=== PATIENT | male | born 1955 | race Caucasian/White ===

== ENCOUNTER 2016-07-10 11:17 | Emergency (ER) | payer MEDICARE ==
[2016-07-10] MEDS ORDERED: HYDROcodone/APAP 5-325MG 1 EACH TAB PO STA (11:43)
[2016-07-10] MEDS ORDERED: CEPHALEXIN 500 MG CAP PO STA (11:43)
--- NOTE | 2016-07-10 11:44 | ED ---
General Adult HPI - General Chief complaint: Extremity Injury, Upper Stated complaint: finger laceration Time Seen by Provider: 07/10/16 11:27 Source: patient, RN notes reviewed, old records reviewed Mode of arrival: ambulatory Limitations: no limitations - History of Present Illness Initial comments: This is a 60-year-old male the ER for evaluation. Patient presents today for evaluation of finger injury. Patient has left index finger crush injury. Patient states his tetanus is up-to-date. Patient was doing some work and describes when he had his finger cut between 2 large pieces of equipment. He does have some range of motion but it does hurt, mild bleeding, laceration medially and laterally. Patient denies any other injury - Related Data Home Medications Medication Instructions Recorded Confirmed Albuterol Inhaler [Ventolin Hfa 1 - 2 puff INHALATION RT-Q6H PRN 07/10/16 Inhaler] Aspirin EC [Ecotrin Low Dose] 81 mg PO DAILY 07/10/16 07/10/16 Atorvastatin [Lipitor] 20 mg PO HS 07/10/16 07/10/16 Cetirizine HCl [Zyrtec] 10 mg PO DAILY 07/10/16 07/10/16 Citalopram Hydrobromide [CeleXA] 40 mg PO HS 07/10/16 07/10/16 Clotrimazole/Betamethasone Dip 1 applic TOPICAL BID 07/10/16 07/10/16 [Lotrisone Cream] Gabapentin [Neurontin] 400 mg PO TID 07/10/16 07/10/16 Hyoscyamine Sulfate [Levsin] 0.125 mg PO QID PRN 07/10/16 07/10/16 Ibuprofen [Motrin] 800 mg PO TID 07/10/16 07/10/16 Insulin Glargine,Hum.rec.anlog 65 unit SQ HS 07/10/16 07/10/16 [Lantus Solostar] Metoprolol Succinate (ER) [Toprol 25 mg PO DAILY 07/10/16 07/10/16 Xl] Mometasone/Formoterol [Dulera 200 1 puff INHALATION RT-BID 07/10/16 07/10/16 Mcg/5 Mcg Inhaler] Montelukast [Singulair] 10 mg PO HS 07/10/16 07/10/16 Multivitamins, Thera [Multivitamin 1 tab PO DAILY 07/10/16 07/10/16 (formulary)] Niacin (Inositol Niacinate) 400 mg PO DAILY 07/10/16 07/10/16 [Niacin Flush Free 500 mg Cap] Omeprazole 20 mg PO BID 07/10/16 07/10/16 hydrOXYzine HCL [Atarax] 50 mg PO HS PRN 07/10/16 07/10/16 metFORMIN HCL [Metformin HCl] 1,000 mg PO BID 07/10/16 07/10/16 traMADol HCL [Ultram] 50 mg PO Q6HR PRN 07/10/16 07/10/16 Allergies Allergy/AdvReac Type Severity Reaction Status Date / Time No Known Allergies Allergy Verified 07/10/16 11:26 Review of Systems ROS Statement: Those systems with pertinent positive or pertinent negative responses have been documented in the HPI. ROS Other: All systems not noted in ROS Statement are negative. Past Medical History Past Medical History: Asthma, Coronary Artery Disease (CAD), Cancer, Diabetes Mellitus, Hyperlipidemia, Hypertension, Osteoarthritis (OA) Additional Past Medical History / Comment(s): brain cancer, neuropathy History of Any Multi-Drug Resistant Organisms: None Reported Past Surgical History: Coronary Bypass/CABG, Hernia Repair, Tonsillectomy Additional Past Surgical History / Comment(s): brain tumor removal Past Psychological History: Anxiety, Depression Smoking Status: Former smoker Past Alcohol Use History: Rare Past Drug Use History: Marijuana General Exam Limitations: no limitations General appearance: alert, in no apparent distress Head exam: Present: atraumatic, normocephalic, normal inspection Eye exam: Present: normal appearance, PERRL, EOMI. Absent: scleral icterus, conjunctival injection, periorbital swelling ENT exam: Present: normal exam, mucous membranes moist Neck exam: Present: normal inspection. Absent: tenderness, meningismus, lymphadenopathy Respiratory exam: Present: normal lung sounds bilaterally. Absent: respiratory distress, wheezes, rales, rhonchi, stridor Cardiovascular Exam: Present: regular rate, normal rhythm, normal heart sounds. Absent: systolic murmur, diastolic murmur, rubs, gallop, clicks GI/Abdominal exam: Present: soft, normal bowel sounds. Absent: distended, tenderness, guarding, rebound, rigid Extremities exam: Present: normal inspection, full ROM, normal capillary refill , other (Left index finger does have crush injury, swollen and edematous, 2 lacerations, 2 cm total). Absent: tenderness, pedal edema, joint swelling, calf tenderness Back exam: Present: normal inspection Neurological exam: Present: alert, oriented X3, CN II-XII intact Psychiatric exam: Present: normal affect, normal mood Skin exam: Present: warm, dry, intact, normal color. Absent: rash Course Vital Signs 07/10/16 11:21 Temperature 98 F Pulse Rate 77 Respiratory 20 Rate Blood Pressure 136/85 O2 Sat by Pulse 100 Oximetry - Reevaluation(s) Reevaluation #1: 07/10/16 11:50 Patient's pain is improving control at this time, tetanus is again up-to-date Procedures - Laceration Laceration #1 Consent Obtained: verbal consent Time Out Performed: Yes Site: hand Size (cm): 5 Description: linear, irregular Depth: simple, single layer Anesthetic Used: lidocaine 1% Anesthesia Technique: nerve block Pre-repair: wound explored Type of Sutures: nylon Size of Sutures: 5-0 Technique: simple, interrupted Patient Tolerated Procedure: well - Nerve Block Consent Obtained: verbal consent Time Out Performed: Yes Local Anesthetic Used: Lidocaine 1% Side: left Nerve Blocks: digital Procedure Successful: Yes Complications: none Patient Tolerated Procedure: well - Orthopedic Splinting/Casting Injury #1 Side: left Upper Extremity Injury Location: finger Upper Extremity Immobilizer: aluminum form splint, finger (other) Medical Decision Making - Medical Decision Making 60 male to the ER with crush injury left finger and laceration. Both lacerations are repaired, patient does have shena fracture, placed in splint we' ll discharge him on pain control and antibiotics - Lab Data Lab Results 07/10/16 Range/Units 12:04 POC Glucose (mg/dL) 270 H (75-99) mg/dL POC Glu Boiling Tub Operator ID Venus Mnoson Disposition Clinical Impression: Open fracture of tuft of distal phalanx of finger, Finger laceration Disposition: HOME SELF-CARE Condition: Good Instructions: Finger Fracture (ED), Laceration (ED) Referrals: Hima Kinsey DO [Primary Care Provider] - 1-2 days
[2016-07-10 12:20] LABS: Glucose,Whole Blood 270 mg/dL (75-99)
--- NOTE | 2016-07-10 12:25 | XR ---
EXAMINATION TYPE: XR hand complete LT DATE OF EXAM ORDERED: 07/10/2016 HISTORY: Pain. COMPARISON: None. FINDINGS: There is a comminuted tuft fracture of the ring finger of the left hand. There are degener ative changes with joint space loss in the PIP and DIP joints of the second through fifth digits. The re is degenerative change at the base of the thumb and mild degenerative change within the triscaphe joint. IMPRESSION: 1. COMPOUND COMMINUTED FRACTURE OF THE TUFT OF THE DISTAL PHALANX OF THE LEFT RING FINGER. 2. DEGENERATIVE CHANGE. CODE B: INITIAL ENCOUNTER FOR OPEN FRACTURE TYPE I OR II
[2016-07-10 13:35] VITALS: BP 122/61; PULSE 70; RESP 18; TEMP 98.1
== END 2016-07-10 13:35 | disposition home or self-care (01) ==
LOC: EC 11:17
DX: S62.635B Displaced fracture of distal phalanx of left ring finger, initial encounter for open fracture (principal); S67.191A Crushing injury of left index finger, initial encounter; S61.211A Laceration without foreign body of left index finger without damage to nail, initial encounter; E78.5 Hyperlipidemia, unspecified; I10 Essential (primary) hypertension; E11.9 Type 2 diabetes mellitus without complications; J45.909 Unspecified asthma, uncomplicated; M19.90 Unspecified osteoarthritis, unspecified site; G62.9 Polyneuropathy, unspecified; F32.9 Major depressive disorder, single episode, unspecified; Z87.891 Personal history of nicotine dependence; Z79.1 Long term (current) use of non-steroidal anti-inflammatories (NSAID); Z79.4 Long term (current) use of insulin; Z79.51 Long term (current) use of inhaled steroids; Z79.82 Long term (current) use of aspirin; Z79.84 Long term (current) use of oral hypoglycemic drugs; Z79.899 Other long term (current) drug therapy; W31.83XA Contact with special construction vehicle in stationary use, initial encounter; Y93.89 Activity, other specified
CPT/HCPCS: 12002; 36415; 99284

== ENCOUNTER → 2018-04-05 | Outpatient (CLI) | payer MEDICARE ==
[2018-04-05 17:41] LABS: T4, Free (Free Thyroxine) 1.3 ng/dL (0.80-1.80)
== END ==
LOC: LABWHC1 07:42
PROVIDERS: ATTEND Internal Medicine Endocrinology, Diabetes & Metabolism
DX: E11.65 Type 2 diabetes mellitus with hyperglycemia (principal)
CPT/HCPCS: 36415; 84439; 84443

== ENCOUNTER 2018-12-10 22:11 | Emergency (ER) | payer MEDICARE ==
[2018-12-10 22:15] VITALS: TEMP 98.2
[2018-12-10] MEDS ORDERED: ALBUTEROL NEBULIZED 2.5 MG/3 ML INHALATION STA (22:40)
--- NOTE | 2018-12-10 22:41 | ED ---
SOB HPI - General Chief Complaint: Shortness of Breath Stated Complaint: SOB Time Seen by Provider: 12/10/18 22:18 Source: patient Mode of arrival: ambulatory Limitations: no limitations - History of Present Illness Initial Comments: This patient is a 63-year-old man who presents to be evaluated for shortness of breath. The patient states that for about a week he has had a little bit of congestion and cough. He feels like most of the congestion is in the upper airway and throat. The cough is been mild and nonproductive. He states that he had tried to go to bed tonight. And he states that just after he had fallen asleep he woke feeling like he could not take a breath. He woke and sat up and then was able to breathe. He noticed that his heart was racing. He was not having chest pain. Patient states that he is feeling like everything has resolved other than a tiny bit of congestion still. He does have a history of some mild COPD. No fever or chills. MD Complaint: shortness of breath Onset/Timin -: hour(s) Consistency: now resolved Known History Of: COPD Context: recent URI Associated Symptoms: denies other symptoms Treatments Prior to Arrival: none - Related Data Home Oxygen Therapy: No Home Medications Medication Instructions Recorded Confirmed Albuterol Inhaler [Ventolin Hfa 1 - 2 puff INHALATION RT-Q6H PRN 07/10/16 12/10/18 Inhaler] Aspirin EC [Ecotrin Low Dose] 81 mg PO DAILY 07/10/16 12/10/18 Atorvastatin [Lipitor] 20 mg PO HS 07/10/16 12/10/18 Cetirizine HCl [Zyrtec] 10 mg PO DAILY 07/10/16 12/10/18 Citalopram Hydrobromide [CeleXA] 40 mg PO HS 07/10/16 12/10/18 Hyoscyamine Sulfate [Levsin] 0.125 mg PO QID PRN 07/10/16 12/10/18 Ibuprofen [Motrin] 800 mg PO TID PRN 07/10/16 12/10/18 Insulin Glargine,Hum.rec.anlog 74 unit SQ 07/10/16 12/10/18 [Lantus Solostar] Mometasone/Formoterol [Dulera 200 2 puff INHALATION RT-BID 07/10/16 12/10/18 Mcg/5 Mcg Inhaler] Montelukast [Singulair] 10 mg PO HS 07/10/16 12/10/18 Multivitamins, Thera [Multivitamin 1 tab PO DAILY 07/10/16 12/10/18 (formulary)] Omeprazole 40 mg PO HS 07/10/16 12/10/18 hydrOXYzine HCL [Atarax] 50 mg PO HS PRN 07/10/16 12/10/18 metFORMIN HCL [Metformin HCl] 1,000 mg PO BID 07/10/16 12/10/18 traMADol HCL [Ultram] 50 mg PO Q6HR PRN 07/10/16 12/10/18 Focus Factor 1 tab PO BID 12/10/18 12/10/18 Insulin Aspart [NovoLOG Flexpen] See Protocol SQ AC-TID 12/10/18 12/10/18 Lisinopril 20 mg PO BID 12/10/18 12/10/18 Metoprolol Succinate (ER) [Toprol 25 mg PO DAILY 12/10/18 12/10/18 Xl] Allergies Allergy/AdvReac Type Severity Reaction Status Date / Time No Known Allergies Allergy Verified 12/10/18 22:50 Review of Systems ROS Statement: Those systems with pertinent positive or pertinent negative responses have been documented in the HPI. ROS Other: All systems not noted in ROS Statement are negative. Constitutional: Denies: fever, chills Respiratory: Reports: as per HPI, cough, dyspnea. Denies: wheezes, hemoptysis Cardiovascular: Reports: palpitations. Denies: chest pain, edema, syncope Gastrointestinal: Denies: abdominal pain, vomiting, diarrhea Genitourinary: Denies: dysuria, hematuria Musculoskeletal: Denies: back pain Skin: Denies: rash Neurological: Denies: headache, weakness Past Medical History Past Medical History: Asthma, Coronary Artery Disease (CAD), Cancer, Diabetes Mellitus, Hyperlipidemia, Hypertension, Osteoarthritis (OA) Additional Past Medical History / Comment(s): brain cancer, neuropathy History of Any Multi-Drug Resistant Organisms: None Reported Past Surgical History: Coronary Bypass/CABG, Hernia Repair, Tonsillectomy Additional Past Surgical History / Comment(s): brain tumor removal Past Psychological History: Anxiety, Depression Smoking Status: Former smoker Past Alcohol Use History: Rare Past Drug Use History: Marijuana General Exam Limitations: no limitations General appearance: alert, in no apparent distress Head exam: Present: atraumatic, normocephalic Eye exam: Present: normal appearance. Absent: scleral icterus, conjunctival injection ENT exam: Present: normal oropharynx, mucous membranes moist Neck exam: Present: normal inspection Respiratory exam: Present: normal lung sounds bilaterally. Absent: respiratory distress, wheezes, rales, rhonchi, stridor, accessory muscle use, decreased breath sounds, prolonged expiratory Cardiovascular Exam: Present: regular rate, normal rhythm, normal heart sounds. Absent: systolic murmur, diastolic murmur, rubs, gallop GI/Abdominal exam: Present: soft. Absent: distended, tenderness, guarding, rebound, rigid, mass Extremities exam: Present: normal inspection, normal capillary refill. Absent: pedal edema, calf tenderness Back exam: Present: normal inspection. Absent: CVA tenderness (R), CVA tendern ess (L) Neurological exam: Present: alert Skin exam: Present: warm, dry, intact, normal color. Absent: rash Course Vital Signs 12/10/18 12/10/18 12/10/18 22:13 22:48 23:50 Temperature 98.2 F Pulse Rate 68 60 Respiratory 20 19 Rate Blood Pressure 166/88 O2 Sat by Pulse 99 Oximetry 12/10/18 12/11/18 23:59 00:34 Temperature Pulse Rate 62 58 L Respiratory 18 Rate Blood Pressure 123/78 O2 Sat by Pulse 96 Oximetry Medical Decision Making - Lab Data Result diagrams: 12/10/18 22:35 12/10/18 22:35 Lab Results 12/10/18 12/10/18 12/10/18 Range/Units 22:35 22:35 22:35 WBC 9.2 (3.8-10.6) k/uL RBC 4.52 (4.30-5.90) m/uL Hgb 14.7 (13.0-17.5) gm/dL Hct 42.8 (39.0-53.0) % MCV 94.7 (80.0-100.0) fL MCH 32.4 (25.0-35.0) pg MCHC 34.2 (31.0-37.0) g/dL RDW 11.8 (11.5-15.5) % Plt Count 287 (150-450) k/uL Neutrophils % 68 % Lymphocytes % 21 % Monocytes % 6 % Eosinophils % 2 % Basophils % 1 % Neutrophils # 6.3 (1.3-7.7) k/uL Lymphocytes # 1.9 (1.0-4.8) k/uL Monocytes # 0.5 (0-1.0) k/uL Eosinophils # 0.2 (0-0.7) k/uL Basophils # 0.0 (0-0.2) k/uL PT 9.4 (9.0-12.0) sec INR 0.9 (<1.2) APTT 25.7 (22.0-30.0) sec D-Dimer 0.53 (<0.60) mg/L FEU Sodium 133 L (137-145) mmol/L Potassium 4.7 (3.5-5.1) mmol/L Chloride 99 (98-107) mmol/L Carbon Dioxide 23 (22-30) mmol/L Anion Gap 11 mmol/L BUN 26 H (9-20) mg/dL Creatinine 1.00 (0.66-1.25) mg/dL Est GFR (CKD-EPI)AfAm >90 (>60 ml/min/1.73 sqM) Est GFR (CKD-EPI)NonAf 81 (>60 ml/min/1.73 sqM) Glucose 590 H* (74-99) mg/dL Calcium 9.8 (8.4-10.2) mg/dL Total Bilirubin 0.3 (0.2-1.3) mg/dL AST 19 (17-59) U/L ALT 32 (21-72) U/L Alkaline Phosphatase 113 (38-126) U/L Troponin I (0.000-0.034) ng/mL NT-Pro-B Natriuret Pep pg/mL Total Protein 6.6 (6.3-8.2) g/dL Albumin 4.3 (3.5-5.0) g/dL 12/10/18 12/10/18 Range/Units 22:35 22:35 WBC (3.8-10.6) k/uL RBC (4.30-5.90) m/uL Hgb (13.0-17.5) gm/dL Hct (39.0-53.0) % MCV (80.0-100.0) fL MCH (25.0-35.0) pg MCHC (31.0-37.0) g/dL RDW (11.5-15.5) % Plt Count (150-450) k/uL Neutrophils % % Lymphocytes % % Monocytes % % Eosinophils % % Basophils % % Neutrophils # (1.3-7.7) k/uL Lymphocytes # (1.0-4.8) k/uL Monocytes # (0-1.0) k/uL Eosinophils # (0-0.7) k/uL Basophils # (0-0.2) k/uL PT (9.0-12.0) sec INR (<1.2) APTT (22.0-30.0) sec D-Dimer (<0.60) mg/L FEU Sodium (137-145) mmol/L Potassium (3.5-5.1) mmol/L Chloride (98-107) mmol/L Carbon Dioxide (22-30) mmol/L Anion Gap mmol/L BUN (9-20) mg/dL Creatinine (0.66-1.25) mg/dL Est GFR (CKD-EPI)AfAm (>60 ml/min/1.73 sqM) Est GFR (CKD-EPI)NonAf (>60 ml/min/1.73 sqM) Glucose (74-99) mg/dL Calcium (8.4-10.2) mg/dL Total Bilirubin (0.2-1.3) mg/dL AST (17-59) U/L ALT (21-72) U/L Alkaline Phosphatase (38-126) U/L Troponin I <0.012 (0.000-0.034) ng/mL NT-Pro-B Natriuret Pep 44 pg/mL Total Protein (6.3-8.2) g/dL Albumin (3.5-5.0) g/dL - EKG Data EKG shows normal: sinus rhythm (With sinus arrhythmia), axis (Normal), intervals (Normal), QRS complexes (Normal), ST-T waves (Normal) Rate: normal (Rate 65 bpm) Interpretation: normal EKG Disposition Clinical Impression: Bronchospasm, Hyperglycemia Disposition: HOME SELF-CARE Condition: Good Instructions (If sedation given, give patient instructions): Acute Bronchitis (ED), Diabetic Hyperglycemia (ED) Is patient prescribed a controlled substance at d/c from ED?: No Referrals: Nonstaff,Physician [Primary Care Provider] - 1-2 days
[2018-12-10 22:57] LABS: Basophils % (A) 1 %; Eosinophils # (A) 0.2 k/uL (0-0.7); Eosinophils % (A) 2 %; HCT 42.8 % (39.0-53.0); HGB 14.7 gm/dL (13.0-17.5); Lymphocytes # (A) 1.9 k/uL (1.0-4.8); Lymphocytes % (A) 21 %; MCH 32.4 pg (25.0-35.0); MCHC 34.2 g/dL (31.0-37.0); MCV 94.7 fL (80.0-100.0); Mean Platelet Volume 6.7; Monocytes # (A) 0.5 k/uL (0-1.0); Monocytes % (A) 6 %; Neutrophils # (A) 6.3 k/uL (1.3-7.7); Neutrophils % (A) 68 %; Platelet Count 287 k/uL (150-450); RBC 4.52 m/uL (4.30-5.90); RDW 11.8 % (11.5-15.5); WBC 9.2 k/uL (3.8-10.6)
--- NOTE | 2018-12-10 22:58 | XR ---
EXAMINATION TYPE: XR chest 2V DATE OF EXAM: 12/10/2018 COMPARISON: NONE HISTORY: Cough TECHNIQUE: Frontal and lateral views of the chest are obtained. FINDINGS: Heart and mediastinum are normal. Lungs are clear of infiltrate. There are sternal wires. Diaphragm is normal. Bony thorax is intact. There is minimal pleural thickening at the lung apices. IMPRESSION: No active cardiopulmonary disease. Normal heart.
[2018-12-10 23:06] LABS: ALT 32 U/L (21-72); AST 19 U/L (17-59); African American GFR (CKD) >90 (>60 ml/min/1.73 sqM); Albumin 4.3 g/dL (3.5-5.0); Alkaline Phosphatase 113 U/L (38-126); Anion Gap 11 mmol/L; Blood Urea Nitrogen 26 mg/dL (9-20); Calcium 9.8 mg/dL (8.4-10.2); Carbon Dioxide 23 mmol/L (22-30); Chloride 99 mmol/L (98-107); Potassium 4.7 mmol/L (3.5-5.1); Sodium 133 mmol/L (137-145); Total Bilirubin 0.3 mg/dL (0.2-1.3); Total Protein 6.6 g/dL (6.3-8.2)
[2018-12-10 23:13] LABS: D-Dimer 0.53 mg/L FEU (<0.60); INR 0.9 (<1.2); Partial Thromboplastin Time 25.7 sec (22.0-30.0); Prothrombin Time 9.4 sec (9.0-12.0)
[2018-12-10 23:46] LABS: Glucose 590 mg/dL (74-99)
[2018-12-11] MEDS ORDERED: SODIUM CHLORIDE 0.9% 2,000 ML IV ONE (00:16)
[2018-12-11] MEDS ORDERED: INSULIN REGULAR 100 UNIT/ML VIAL IV STA (00:16)
[2018-12-11 00:35] VITALS: BP 123/78; PULSE 58; RESP 18
[2018-12-11 01:42] LABS: Glucose,Whole Blood 200 mg/dL (75-99)
== END 2018-12-11 01:43 | disposition home or self-care (01) ==
LOC: EC 22:11
DX: J98.01 Acute bronchospasm (principal); E11.65 Type 2 diabetes mellitus with hyperglycemia; J44.9 Chronic obstructive pulmonary disease, unspecified; I25.10 Atherosclerotic heart disease of native coronary artery without angina pectoris; E78.5 Hyperlipidemia, unspecified; I10 Essential (primary) hypertension; E11.40 Type 2 diabetes mellitus with diabetic neuropathy, unspecified; M19.90 Unspecified osteoarthritis, unspecified site; F32.9 Major depressive disorder, single episode, unspecified; F41.9 Anxiety disorder, unspecified; Z87.891 Personal history of nicotine dependence; Z79.4 Long term (current) use of insulin; Z79.51 Long term (current) use of inhaled steroids; Z79.82 Long term (current) use of aspirin; Z79.899 Other long term (current) drug therapy; Z85.841 Personal history of malignant neoplasm of brain; Z95.1 Presence of aortocoronary bypass graft; Z90.89 Acquired absence of other organs; Z98.890 Other specified postprocedural states
CPT/HCPCS: 36415; 71046; 80053; 83880; 84484; 85025; 85379; 85610; 85730; 93005; 94640; 96360; 99285

== ENCOUNTER → 2018-12-22 | Outpatient (CLI) | payer MEDICARE ==
[2018-12-22 08:27] LABS: Basophils % (A) 1 %; Eosinophils # (A) 0.3 k/uL (0-0.7); Eosinophils % (A) 4 %; HCT 45.8 % (39.0-53.0); HGB 15.6 gm/dL (13.0-17.5); Lymphocytes # (A) 1.8 k/uL (1.0-4.8); Lymphocytes % (A) 27 %; MCH 32.2 pg (25.0-35.0); MCHC 34.1 g/dL (31.0-37.0); MCV 94.3 fL (80.0-100.0); Monocytes # (A) 0.4 k/uL (0-1.0); Monocytes % (A) 6 %; Neutrophils # (A) 4.2 k/uL (1.3-7.7); Neutrophils % (A) 61 %; Platelet Count 287 k/uL (150-450); RBC 4.86 m/uL (4.30-5.90); RDW 11.6 % (11.5-15.5); WBC 6.9 k/uL (3.8-10.6)
[2018-12-22 17:30] LABS: African American GFR (CKD) 75.2 (60.0-200.0); Albumin 4.5 g/dL (3.80-4.90); Albumin/Globulin Ratio 2.37 (1.60-3.17); BUN/Creat Ratio 18.33 Ratio (12.00-20.00); Calcium 9.3 mg/dL (8.7-10.3); Chol/HDL Ratio 5.17; Globulin 1.9 g/dL (1.6-3.3); Total Bilirubin 0.4 mg/dL (0.3-1.2); Total Protein 6.4 g/dL (6.2-8.2)
[2018-12-22 17:38] LABS: T4, Free (Free Thyroxine) 1.2 ng/dL (0.80-1.80)
[2018-12-22 18:14] LABS: Hemoglobin A1C 11.1 % (4.0-6.0)
== END | disposition home or self-care (01) ==
LOC: LABWHC1 08:02
PROVIDERS: ATTEND Internal Medicine Endocrinology, Diabetes & Metabolism
DX: E11.65 Type 2 diabetes mellitus with hyperglycemia (principal); I10 Essential (primary) hypertension; E78.00 Pure hypercholesterolemia, unspecified
CPT/HCPCS: 36415; 80053; 80061; 82043; 82570; 83036; 83721; 84439; 84443; 85025

== ENCOUNTER → 2019-04-19 | Outpatient (CLI) | payer MEDICARE ==
[2019-04-19 07:04] LABS: Basophils % (A) 1 %; Eosinophils # (A) 0.2 k/uL (0-0.7); Eosinophils % (A) 3 %; HCT 47.7 % (39.0-53.0); HGB 15.9 gm/dL (13.0-17.5); Lymphocytes # (A) 2.1 k/uL (1.0-4.8); Lymphocytes % (A) 27 %; MCH 31.4 pg (25.0-35.0); MCHC 33.4 g/dL (31.0-37.0); MCV 94.1 fL (80.0-100.0); Mean Platelet Volume 7.7; Monocytes # (A) 0.5 k/uL (0-1.0); Monocytes % (A) 6 %; Neutrophils # (A) 4.8 k/uL (1.3-7.7); Neutrophils % (A) 62 %; Platelet Count 259 k/uL (150-450); RBC 5.07 m/uL (4.30-5.90); RDW 11.8 % (11.5-15.5); WBC 7.8 k/uL (3.8-10.6)
[2019-04-19 10:55] LABS: African American GFR (CKD) 68.3 (60.0-200.0); Albumin 4.6 g/dL (3.80-4.90); Albumin/Globulin Ratio 2.42 (1.60-3.17); Anion Gap 6.2 mmol/L (4.00-12.00); BUN/Creat Ratio 17.69 Ratio (12.00-20.00); Calcium 9.6 mg/dL (8.7-10.3); Carbon Dioxide 26.8 mmol/L (21.6-31.8); Chol/HDL Ratio 4.19; Globulin 1.9 g/dL (1.6-3.3); Non-African American GFR(CKD) 58.9 (60.0-200.0); Potassium 4.5 mmol/L (3.5-5.5); Total Bilirubin 0.5 mg/dL (0.2-1.2); Total Protein 6.5 g/dL (6.2-8.2); Urine Creatinine 120.9 mg/dL
[2019-04-19 11:01] LABS: T4, Free (Free Thyroxine) 1.6 ng/dL (0.80-1.80)
[2019-04-19 16:11] LABS: Hemoglobin A1C 11.4 % (4.0-6.0)
== END | disposition home or self-care (01) ==
LOC: LABWHC1 06:35
PROVIDERS: ATTEND Internal Medicine Endocrinology, Diabetes & Metabolism
DX: E11.65 Type 2 diabetes mellitus with hyperglycemia (principal); I10 Essential (primary) hypertension; E03.9 Hypothyroidism, unspecified
CPT/HCPCS: 36415; 80053; 80061; 82043; 82570; 83036; 84439; 84443; 85025

== ENCOUNTER → 2019-08-28 | Outpatient (CLI) | payer MEDICARE ==
[2019-08-28 19:06] LABS: T4, Free (Free Thyroxine) 1.3 ng/dL (0.80-1.80)
== END | disposition home or self-care (01) ==
LOC: LABWHC1 14:07
PROVIDERS: ATTEND Internal Medicine Endocrinology, Diabetes & Metabolism
DX: E11.65 Type 2 diabetes mellitus with hyperglycemia (principal); R94.6 Abnormal results of thyroid function studies
CPT/HCPCS: 36415; 84439; 84443; 84481

== ENCOUNTER 2020-12-24 06:04 | Day surgery (SDC) | payer MEDICARE ==
[~2020-12-24 06:04] MED LIST: ALPRAZolam 0.25 MG TAB PO PRN; ALPRAZolam 0.5 MG TAB PO PRN; ASPIRIN 325 MG TAB PO STA; ATORVASTATIN 80 MG TAB PO STA; NITROGLYCERIN SL TABS 0.4 MG TAB SUBLINGUAL PRN
[2020-12-24] MEDS ORDERED: SODIUM CHLORIDE 0.9% 1,000 ML IV ONE (06:40)
[2020-12-24 06:52] LABS: Glucose,Whole Blood 186 mg/dL (75-99)
[2020-12-24 07:08] LABS: Basophils # (A) 0.1 k/uL (0-0.2); Basophils % (A) 1 %; Eosinophils # (A) 0.3 k/uL (0-0.7); Eosinophils % (A) 3 %; HGB 14.3 gm/dL (13.0-17.5); Lymphocytes # (A) 2.8 k/uL (1.0-4.8); Lymphocytes % (A) 33 %; MCH 32.2 pg (25.0-35.0); MCHC 34.1 g/dL (31.0-37.0); MCV 94.6 fL (80.0-100.0); Mean Platelet Volume 7.5; Monocytes # (A) 0.5 k/uL (0-1.0); Monocytes % (A) 6 %; Neutrophils # (A) 4.8 k/uL (1.3-7.7); Neutrophils % (A) 56 %; Platelet Count 333 k/uL (150-450); RBC 4.44 m/uL (4.30-5.90); RDW 12.2 % (11.5-15.5); WBC 8.5 k/uL (3.8-10.6)
[2020-12-24] MEDS ORDERED: LIDOCAINE 1% INJ 10MG/ML (20 ML MDV) ONE (07:16)
[2020-12-24] MEDS ORDERED: VERAPAMIL 2.5 MG/ML 2 ML AMP ONE (07:16)
[2020-12-24 07:31] LABS: Potassium 4.5 mmol/L (3.5-5.1)
[2020-12-24] MEDS ORDERED: fentaNYL (PF) 50 MCG/ML 2 ML AMP ONE (07:32)
[2020-12-24] MEDS ORDERED: fentaNYL (PF) 50 MCG/ML 2 ML AMP IV ONE (07:40)
[2020-12-24] MEDS ORDERED: LIDOCAINE 1% INJ 10MG/ML (20 ML MDV) SQ ONE (07:43)
[2020-12-24] MEDS ORDERED: IOPAMIDOL-370 100ML BTL INJ ONE ×3 (08:00→08:30)
[2020-12-24] MEDS ORDERED: IOPAMIDOL-370 125ML BTL INJ ONE (08:04)
[2020-12-24] MEDS ORDERED: HEPARIN SODIUM 1,000 UN/ML (10ML VL) ONE ×2 (08:09→08:31)
[2020-12-24] MEDS ORDERED: CLOPIDOGREL 75 MG TAB ONE (08:11)
[2020-12-24] MEDS ORDERED: CLOPIDOGREL 75 MG TAB PO ONE (08:12)
[2020-12-24] MEDS ORDERED: niCARdipine 25 MG/10 ML VIAL ONE (08:22)
[2020-12-24] MEDS: niCARdipine Syringe (1,000 mcg/10 mL) INTRACORON ONE ×2 (08:23→08:24)
[2020-12-24] MEDS ORDERED: NITROGLYCERIN 1000MCG/10ML SYRINGE INTRACORON ONE (08:23)
[2020-12-24] MEDS ORDERED: ZOLPIDEM 5 MG TAB PO PRN (08:36)
[2020-12-24] MEDS ORDERED: MAG HYDROX/AL HYDROX/SIMETH 30 ML CUP PO PRN (08:36)
[2020-12-24] MEDS ORDERED: NITROGLYCERIN SL TABS 0.4 MG TAB SUBLINGUAL PRN (08:36)
[2020-12-24] MEDS ORDERED: ATROPINE SULFATE 0.1 MG/ML 10ML SYRINGE IV PRN (08:36)
[2020-12-24] MEDS ORDERED: RX INFO: IV CONTRAST WAS GIVEN 1 EACH MISC MISCELLANE PRN (08:36)
[2020-12-24] MEDS ORDERED: SODIUM CHLORIDE 0.9% 1,000 ML IV SCH (08:45)
--- NOTE | 2020-12-24 11:03 | PTCA ---
PERCUTANEOUSTRANS CORORONARY ANGIOGRAPHY Mr. Burks is a 65-year-old male with known history of coronary artery disease who presented with symptoms of dyspnea and abnormal myocardial perfusion imaging. His cardiac catheterization revealed significant obstructive disease involving the saphenous vein graft to the right coronary artery. In view of that, recommendation was made regarding angioplasty and stenting. The procedure as well as the risks and the complications were discussed with the patient who is in full understanding and agreement. PROCEDURE: A 6-Ukrainian right coronary artery bypass guiding catheter was introduced in the system. After cannulating the saphenous vein graft to the right coronary artery, a 0.014 balanced medium weight J-wire was advanced across the lesion, positioned distally. Then a 3.5 x 18 mm Xience SkyPoint stent was advanced, deployed and was dilated at 16 atmospheres. Following that, the patient had a transient episode of no reflow that resolved with giving intracoronary nitroglycerin and nicardipine. Following that the balloon and the guidewire were withdrawn back in the guiding catheter. Images were obtained repeated. Those images revealed stable successful stenting. At that point, the guiding catheter, the balloon and the guidewire were removed. The sheath was removed. Hemostasis was obtained with deployment of an Angio-Seal. There was no immediate complication. Patient was returned to his room in stable condition. Of note, the patient received 8000 units of intravenous heparin as well as oral loading dose of clopidogrel. He had chest discomfort and EKG changes that resolved at the end procedure. RESULTS: Successful stenting of the proximal segment of the saphenous vein graft to the right coronary artery with reduction of stenosis from 85 to 0 percent. RECOMMENDATIONS: Patient will be continued on aspirin, Plavix, beta glen, DEAN inhibitor and statin. The importance of dual antiplatelet treatment were discussed with the patient and his family, and they are in full understanding and agreement. MMODL / IJN: [id number] /
--- NOTE | 2020-12-24 11:14 | CC ---
CARDIAC CATHETERIZATION REPORT Mr. Burks is a 65-year-old male with known history of coronary artery disease, status post coronary artery bypass grafting, history of hypertension, hyperlipidemia and diabetes mellitus who has been complaining of dyspnea on exertion and had myocardial perfusion imaging that revealed evidence of inducible ischemia involving the inferolateral wall. In view of that, recommendation was made regarding cardiac catheterization. The procedure as well as risks and complications were discussed with the patient, who was in full understanding and agreement. PROCEDURE DESCRIPTION: Patient was brought to the lab animal technician in a fasting, semi-sedated state after receiving fentanyl and Benadryl and achieving a moderate conscious sedated state. Using Xylocaine anesthesia and Seldinger technique, a 6-Ethiopian sheath was introduced in the right femoral artery. Selective right and left coronary angiography was performed using 6-Ethiopian 4 bend right and left Angelina catheters. Multiple views were taken of the arteries, including hemiaxial views. The 6-Ethiopian right Angelina was used to cannulate the RIOJAS to LAD and saphenous vein graft to the diagonal branch. Images of the grafts were obtained. Following that, 6-Ethiopian tight pigtail catheter was introduced into the left ventricle and left ventricular end-diastolic pressure was calculated. Following that, an ENZO view of the ascending aorta was performed. Following that, a 6-Ethiopian right coronary bypass catheter was introduced and images of the saphenous vein graft to the right coronary artery and saphenous vein graft to the obtuse marginal branch were obtained. Following that, catheters were removed. Images were reviewed. FINDINGS: LEFT MAIN: This is a short-sized vessel bifurcating into left circumflex and left anterior descending artery. Left main coronary artery has no evidence of high- grade stenosis. LEFT ANTERIOR DESCENDING ARTERY: This vessel is totally occluded proximally with no significant antegrade flow. Left Circumflex artery: This is a moderately sized vessel giving rise to 4 obtuse marginal branches of small caliber. The fourth one is the largest in caliber. The proximal left circumflex has a 90% stenosis. There is another area of 90% stenosis in the mid segment. The third obtuse marginal branch appears to be the grafted graft and it is a very in caliber. It appears to have an occluded graft. RIGHT CORONARY ARTERY: The right coronary is totally occluded proximally with no antegrade flow. SAPHENOUS VEIN GRAFT TO THE DIAGONAL BRANCH: The proximal and distal anastomotic sites are patent. The flow into the diagonal branch is brisk. There is no evidence of significant obstructive disease. RIOJAS TO LAD: The distal anastomotic site is patent. The LAD is diffusely diseases, small in caliber, but has no evidence of high grade lesion. SAPHENOUS VEIN GRAFT TO THE OBTUSE MARGINAL BRANCH. This graft is totally occluded proximally with no significant antegrade flow. SAPHENOUS VEIN GRAFT TO THE RIGHT CORONARY ARTERY: The proximal and distal anastomotic sites are patent. In the proximal segment of the body of the graft, there is an eccentric 85% to 90% stenosis. The rest of the graft has mild intimal disease without any evidence of high-grade stenosis. LEFT VENTRICULOGRAM: Left ventriculogram was not performed. AORTOGRAM : Aortogram was performed in the ENZO view and revealed a tricuspid aortic valve with normal size of the ascending aorta. HEMODYNAMICS: There was no gradient across the aortic valve. The left ventricular end- diastolic pressure was 16-18 mmHg. CONCLUSION: 1. Severe triple-vessel coronary artery disease. 2. Patent RIOJAS to LAD. 3. Patent saphenous vein graft to the diagonal branch. 4. Patent saphenous vein graft to the right coronary artery with significant disease in the proximal segment of the body of the graft. 5. Occluded saphenous vein graft to the obtuse marginal branch. 6. Normal appearance of the ascending aorta. RECOMMENDATIONS: In view of findings and anatomy, I have recommended proceeding with angioplasty and stenting of the saphenous vein graft to the right coronary artery. The procedure as well as risks and complications were discussed with the patient, who is in full understanding and agreement. MMODL / IJN: [id number] / [id number]
[2020-12-24] MEDS: SODIUM CHLORIDE 0.9% 1,000 ML in EMPTY BAG 1 BAG IV SCH ×2 (11:46→18:01)
[2020-12-24] MEDS: MONTELUKAST 10 MG TAB PO SCH (13:08)
[2020-12-24] MEDS: traMADol 50 MG TAB PO SCH ×2 (13:08→17:59)
[2020-12-24] MEDS: lisinopriL 20 MG TAB PO SCH ×2 (13:09→20:20)
[2020-12-24] MEDS: ASPIRIN 81 MG PO SCH (13:10)
[2020-12-24] MEDS: CHOLECALCIFEROL 125 MCG (5000 IU) TABLET PO SCH (13:13)
[2020-12-24 14:08] VITALS: BMI 29.5
[2020-12-24] MEDS: PANTOPRAZOLE 40 MG TABLET PO SCH (17:59)
[2020-12-24 18:09] LABS: Glucose,Whole Blood 258 mg/dL (75-99)
[2020-12-24 20:21] LABS: Glucose,Whole Blood 100 mg/dL (75-99)
[2020-12-24] MEDS ORDERED: METOPROLOL SUCCINATE (ER) 25 MG TAB.ER.24H PO SCH (21:00)
[2020-12-24] MEDS ORDERED: INSULIN DETEMIR (LEVEMIR) 100 UNIT/ML SYR SQ SCH (21:00)
[2020-12-24] MEDS ORDERED: ATORVASTATIN 40 MG TAB PO SCH (21:00)
[2020-12-24] MEDS ORDERED: CITALOPRAM HYDROBROMIDE 20 MG TAB PO SCH (21:00)
[2020-12-25] MEDS: traMADol 50 MG TAB PO SCH ×2 (01:29→08:35)
[2020-12-25] MEDS: SODIUM CHLORIDE 0.9% 1,000 ML in EMPTY BAG 1 BAG IV SCH (01:31)
[2020-12-25 06:38] LABS: African American GFR (CKD) 69 (>60 ml/min/1.73 sqM); Anion Gap 6 mmol/L; Blood Urea Nitrogen 18 mg/dL (9-20); Calcium 9.5 mg/dL (8.4-10.2); Carbon Dioxide 25 mmol/L (22-30); Chloride 107 mmol/L (98-107); Glucose 72 mg/dL (74-99); Non-African American GFR(CKD) 59 (>60 ml/min/1.73 sqM); Sodium 138 mmol/L (137-145)
[2020-12-25 07:50] VITALS: BP 120/71; PULSE 59; RESP 17; TEMP 98.1
[2020-12-25 08:12] LABS: Glucose,Whole Blood 79 mg/dL (75-99)
[2020-12-25] MEDS: MONTELUKAST 10 MG TAB PO SCH (08:35)
[2020-12-25] MEDS: ASPIRIN 81 MG PO SCH (08:36)
[2020-12-25] MEDS: lisinopriL 20 MG TAB PO SCH (08:36)
[2020-12-25] MEDS: PANTOPRAZOLE 40 MG TABLET PO SCH (08:36)
[2020-12-25] MEDS: CHOLECALCIFEROL 125 MCG (5000 IU) TABLET PO SCH (08:37)
[2020-12-25] MEDS ORDERED: CLOPIDOGREL 75 MG TAB PO SCH (09:00)
--- NOTE | 2020-12-25 10:02 | P.DS ---
Providers Attending physician: Dorinda Laws Consults: 12/24/20 08:36 Consult Physician Routine Consulting Provider: [facility] Consult Reason/Comments: Post Interventional patient Do you want consulting provider notified?: Already Contacted Primary care physician: Hima Kinsey [facility] Course: Patient is a pleasant 65-year-old male with history of coronary artery disease with prior CABG, COPD, diabetes mellitus on insulin, hypertension, hyperlipidemia, glioblastoma multiform who has been having off-and-on chest pain. He had a Lexiscan stress test which showed a inferior inferolateral reversible perfusion defect and therefore heart catheterization was performed 12/24/2020 which showed severe triple vessel disease with patent RIOJAS to LAD, SVG to diagonal branch however significant disease of the SVG to RCA and occluded SVG to OM branch. Therefore he underwent successful PCI of the SVG to RCA from my right femoral approach. He was seen and examined 12/25/2020 without any hematoma and lungs clear to auscultation bilaterally with regular heart rate and rhythm. He denied any chest pain or pressure and appeared stable for discharge home on aspirin and Plavix. Plan - Discharge Summary Discharge Rx Participant: Yes New Discharge Prescriptions: New Clopidogrel [Plavix] 75 mg PO DAILY #90 tablet No Action Cetirizine HCl [Zyrtec] 10 mg PO DAILY Albuterol Inhaler (Mhu) [Ventolin Hfa Inhaler] 1 - 2 puff INHALATION RT-Q6H PRN PRN Reason: Shortness Of Breath Multivitamins, Thera [Multivitamin (formulary)] 1 tab PO DAILY Atorvastatin [Lipitor] 20 mg PO HS Aspirin EC [Ecotrin Low Dose] 81 mg PO DAILY traMADol HCL [Ultram] 50 mg PO TID Montelukast [Singulair] 10 mg PO DAILY Citalopram Hydrobromide [CeleXA] 40 mg PO HS Insulin Glargine,Hum.rec.anlog [Lantus Solostar] 64 unit SQ HS Ibuprofen [Motrin] 800 mg PO TID metFORMIN HCL [Metformin HCl] 1,000 mg PO BID Omeprazole 20 mg PO BID Metoprolol Succinate (ER) [Toprol Xl] 25 mg PO HS lisinopriL 20 mg PO BID Insulin Aspart [NovoLOG Flexpen] See Protocol SQ AC-TID PRN PRN Reason: Blood Sugar - High Focus Factor 1 tab PO BID Cholecalciferol [Vitamin D3 (125 Mcg = 5000 Iu)] 125 mcg PO DAILY Discharge Medication List Albuterol Inhaler (Mhu) [Ventolin Hfa Inhaler] 1 - 2 puff INHALATION RT-Q6H PRN 07/10/16 [History] Aspirin EC [Ecotrin Low Dose] 81 mg PO DAILY 07/10/16 [History] Atorvastatin [Lipitor] 20 mg PO HS 07/10/16 [History] Cetirizine HCl [Zyrtec] 10 mg PO DAILY 07/10/16 [History] Citalopram Hydrobromide [CeleXA] 40 mg PO HS 07/10/16 [History] Ibuprofen [Motrin] 800 mg PO TID 07/10/16 [History] Insulin Glargine,Hum.rec.anlog [Lantus Solostar] 64 unit SQ HS 07/10/16 [History] Montelukast [Singulair] 10 mg PO DAILY 07/10/16 [History] Multivitamins, Thera [Multivitamin (formulary)] 1 tab PO DAILY 07/10/16 [History] Omeprazole 20 mg PO BID 07/10/16 [History] metFORMIN HCL [Metformin HCl] 1,000 mg PO BID 07/10/16 [History] traMADol HCL [Ultram] 50 mg PO TID 07/10/16 [History] Insulin Aspart [NovoLOG Flexpen] See Protocol SQ AC-TID PRN 12/10/18 [History] Metoprolol Succinate (ER) [Toprol Xl] 25 mg PO HS 12/10/18 [History] lisinopriL 20 mg PO BID 12/10/18 [History] Cholecalciferol [Vitamin D3 (125 Mcg = 5000 Iu)] 125 mcg PO DAILY 12/22/20 [Hist ory] Focus Factor 1 tab PO BID 12/22/20 [History] Clopidogrel [Plavix] 75 mg PO DAILY #90 tablet 12/25/20 [Rx] Follow up Appointment(s)/Referral(s): Dorinda Laws MD [STAFF PHYSICIAN] - 1 Week (Office will call with appointment date and time) Patient Instructions/Handouts: *[facility] - After Heart Catheterization - [facility] Instructions, Left Heart Catheterization (DC), Procedural Sedation (ED), Angio-Seal (DC) Activity/Diet/Wound Care/Special Instructions: Resume Metformin in 48 hours
== END 2020-12-25 09:57 | disposition home or self-care (01) ==
LOC: CATHCVL 06:04 → 6NMEDSUR 08:30 → CATHCVL 12-25 09:57
PROVIDERS: ATTEND Internal Medicine Interventional Cardiology
DX: I25.10 Atherosclerotic heart disease of native coronary artery without angina pectoris (principal); Z20.822 Contact with and (suspected) exposure to COVID-19
CPT/HCPCS: 93459; 93567; 80051; 80048; 85025; 87635; C9604; C1769 ×2; C1760; C1887; C1894; C1874; J2001; J3010; J1644; Q9967 ×2

== ENCOUNTER 2021-05-21 08:55 | Day surgery (SDC) | payer MEDICARE ==
[~2021-05-21 08:55] MED LIST changes: +ASPIRIN 325 MG TAB PO ONE; -ASPIRIN 325 MG TAB PO STA; +ATORVASTATIN 80 MG TAB PO ONE; -ATORVASTATIN 80 MG TAB PO STA; +SODIUM CHLORIDE 0.9% 1,000 ML in EMPTY BAG 1 BAG IV SCH
[2021-05-21] MEDS ORDERED: ASPIRIN 81 MG ONE (09:15)
[2021-05-21 09:26] LABS: Glucose,Whole Blood 67 mg/dL (75-99)
[2021-05-21] MEDS ORDERED: SODIUM CHLORIDE 0.9% 1,000 ML IV ONE (09:29)
[2021-05-21 09:32] VITALS: RESP 16; TEMP 98.3
[2021-05-21 09:38] LABS: Basophils # (A) 0.1 k/uL (0-0.2); Basophils % (A) 1 %; Eosinophils # (A) 0.2 k/uL (0-0.7); Eosinophils % (A) 2 %; HCT 43.7 % (39.0-53.0); HGB 14.6 gm/dL (13.0-17.5); Lymphocytes # (A) 1.8 k/uL (1.0-4.8); Lymphocytes % (A) 20 %; MCH 31.1 pg (25.0-35.0); MCHC 33.3 g/dL (31.0-37.0); MCV 93.2 fL (80.0-100.0); Mean Platelet Volume 7.5; Monocytes # (A) 0.6 k/uL (0-1.0); Monocytes % (A) 7 %; Neutrophils # (A) 6.1 k/uL (1.3-7.7); Neutrophils % (A) 68 %; Platelet Count 324 k/uL (150-450); RBC 4.69 m/uL (4.30-5.90); RDW 13.4 % (11.5-15.5); WBC 8.9 k/uL (3.8-10.6)
[2021-05-21 09:55] LABS: Calcium 9.9 mg/dL (8.4-10.2); Potassium 4.7 mmol/L (3.5-5.1)
[2021-05-21] MEDS ORDERED: LIDOCAINE 1% INJ 10MG/ML (20 ML MDV) ONE (10:12)
[2021-05-21] MEDS ORDERED: VERAPAMIL 2.5 MG/ML 2 ML AMP ONE (10:23)
[2021-05-21] MEDS ORDERED: fentaNYL (PF) 50 MCG/ML 2 ML AMP ONE (10:31)
[2021-05-21] MEDS ORDERED: fentaNYL (PF) 50 MCG/ML 2 ML AMP IVP ONE (10:53)
[2021-05-21] MEDS ORDERED: LIDOCAINE 1% INJ 10MG/ML (20 ML MDV) SQ ONE (10:57)
[2021-05-21] MEDS ORDERED: IOPAMIDOL-370 125ML BTL INJ ONE (11:15)
[2021-05-21] MEDS ORDERED: RX INFO: IV CONTRAST WAS GIVEN 1 EACH MISC MISCELLANE PRN (11:28)
[2021-05-21] MEDS ORDERED: SODIUM CHLORIDE 0.9% 1,000 ML IV SCH (11:30)
--- NOTE | 2021-05-21 11:43 | P.CARDCATH ---
Date of Procedure: 05/21/21 Description of Procedure: Cardiac Catheterization: [the patient is a 65-year-old male with a history of hypertension, hyperlipidemia and diabetes mellitus, post CABG in 2006 and stenting of the saphenous to the RCA in December 2020 who presented with symptoms of chest discomfort and dyspnea.] Recommendations were made regarding cardiac catheterization, the risks and the complications were discussed with the patient who is in full understanding and agreement. Procedure Description: Patient was brought to laboratory aide in fasting semi-sedated state after receiving Fentanyl and Benadryl achieiving moderate conscious sedated state. Using Xylocaine Anesthesia and Seldinger technique, a 6-German sheath was introduced in the right femoral artery . Subsequently, selective coronary angiography performed using a 6-German 4 bend Angelina catheter.the right Angelina was used to cannulate the RIOJAS to the LAD and the saphenous vein graft to the diagonal, a 6-German RCB with used to cannulate the saphenous vein graft to the RCA. Multiple views of the coronary artery and the grafts including hemiaxial views were obtained. The 6-German Pigatail catheter was used to cross the aortic valve and LVEDP was calculated. Following that, catheter and sheath were removed. Hemostasis was obtained with deployment of Angio seal . There was no immediate complication. Patient was returned to room in stable condition. There was no immediate complications. Findings: Left main: this is a moderately sized vessel that has no evidence of high-grade stenosis, bifurcates into the LAD and the left circumflex LAD: this vessel is totally occluded proximally with no significant antegrade flow Left circumflex: this vessel gives rise to obtuse marginal branch, it has diffuse disease throughout its course and the obtuse marginal are small in caliber RCA: this vessel is chronically occluded proximally with no antegrade flow RIOJAS to the LAD: The distal anastomotic site is patent there is no evidence of significant obstructive disease and the flow in the LAD is brisk. SVG to the diagonal branch: The proximal and distal anastomotic site are patent, the diagonal branch has diffuse intimal disease. SVG to the RCA: The proximal and distal anastomotic sites are patent. The stented segment shows no evidence of in-stent restenosis. There is a 40% mid body of the graft eccentric lesion. The PDA is small in caliber, diffusely diseased with a 60-70% stenosis at the distal anastomotic site [Left] Ventriculogram: Was not performed Hemodynamics: there was no gradient across the aortic valve, LVEDP 15-20 mmHg Conclusion: 1. severe triple-vessel disease 2. diffuse intimal disease in the [place] anatomy 3. patent stent in the saphenous vein graft to the RCA 4. patent RIOJAS to the LAD and patent SVG to the diagonal Recommendations: I have recommended to continue present therapy, I see no evidence of significant progression of disease since December 2020. I would maximize his medical therapy in view of diffuse pattern of disease in the [place] anatomy. The findings were discussed with the patient and his family, they are in agreement and understanding Duration of sedation is 23 minutes.
[2021-05-21 14:21] VITALS: BP 113/61; PULSE 60
[2021-05-21] MEDS ORDERED: traMADol 50 MG TAB PO SCH (16:00)
[2021-05-21] MEDS ORDERED: PREGABALIN 75 MG CAP PO SCH (16:00)
[2021-05-21] MEDS ORDERED: NON FORMULARY DRUG (Insulin Glargine,Hum.Rec.Anlog [Lantus Solostar] 100 UNIT/ML Insuln.Pe SQ SCH (21:00)
[2021-05-21] MEDS ORDERED: NON FORMULARY DRUG (Citalopram Hydrobromide [Celexa] 40 MG Tablet) PO SCH (21:00)
[2021-05-21] MEDS ORDERED: lisinopriL 20 MG TAB PO SCH (21:00)
[2021-05-21] MEDS ORDERED: ATORVASTATIN 40 MG TAB PO SCH (21:00)
[2021-05-21] MEDS ORDERED: METOPROLOL SUCCINATE (ER) 25 MG TAB.ER.24H PO SCH (21:00)
[2021-05-22] MEDS ORDERED: HEPARIN SODIUM,PORCINE 2,500 UNIT in SODIUM CHLORIDE 0.9% 250 ML IRRIGATION PRN (07:00)
[2021-05-22] MEDS ORDERED: HEPARIN SODIUM,PORCINE 10,000 UNIT in SODIUM CHLORIDE 0.9% 1,000 ML IRRIGATION PRN (07:00)
[2021-05-22] MEDS ORDERED: GLIMEPIRIDE 4 MG TAB PO SCH (07:30)
[2021-05-22] MEDS ORDERED: MONTELUKAST 10 MG TAB PO SCH (09:00)
[2021-05-22] MEDS ORDERED: PIOGLITAZONE 30 MG TAB PO SCH (09:00)
[2021-05-22] MEDS ORDERED: CLOPIDOGREL 75 MG TAB PO SCH (09:00)
[2021-05-22] MEDS ORDERED: ASPIRIN 81 MG PO SCH (09:00)
== END 2021-05-21 15:02 | disposition home or self-care (01) ==
LOC: CATHCVL 08:55
PROVIDERS: ATTEND Internal Medicine Interventional Cardiology
DX: I25.10 Atherosclerotic heart disease of native coronary artery without angina pectoris (principal); I25.82 Chronic total occlusion of coronary artery; I10 Essential (primary) hypertension; E11.9 Type 2 diabetes mellitus without complications; E78.00 Pure hypercholesterolemia, unspecified; E78.2 Mixed hyperlipidemia; Z95.5 Presence of coronary angioplasty implant and graft; Z95.1 Presence of aortocoronary bypass graft; Z20.822 Contact with and (suspected) exposure to COVID-19; Z87.891 Personal history of nicotine dependence; Z79.899 Other long term (current) drug therapy; Z79.82 Long term (current) use of aspirin; Z79.02 Long term (current) use of antithrombotics/antiplatelets; Z79.4 Long term (current) use of insulin; Z79.84 Long term (current) use of oral hypoglycemic drugs; Z82.49 Family history of ischemic heart disease and other diseases of the circulatory system
CPT/HCPCS: 93459; 80048; 85025; 87635; C1760; C1894; C1769; J2001; J3010; Q9967

== ENCOUNTER 2022-07-04 09:41 | Emergency (ER) | payer MEDICARE ==
[2022-07-04] MEDS ORDERED: diphenhydrAMINE 50 MG CAP PO STA (09:58)
[2022-07-04] MEDS ORDERED: methylPREDNISolone SOD SUCCI 125 MG/2 ML VIAL IV STA (09:58)
[2022-07-04] MEDS ORDERED: FAMOTIDINE 20 MG/2 ML VIAL IV STA (09:58)
[2022-07-04] MEDS ORDERED: SODIUM CHLORIDE 0.9% 1,000 ML IV STA (09:58)
--- NOTE | 2022-07-04 10:07 | ED ---
Skin/Abscess/FB HPI - General Chief complaint: Skin/Abscess/Foreign Body Stated complaint: allergic reaction Time Seen by Provider: 07/04/22 09:48 Source: patient, family, RN notes reviewed Mode of arrival: ambulatory Limitations: no limitations - History of Present Illness Initial comments: This is a 66-year-old male who presents to the emergency department for concerns of an allergic reaction. States that last night he started to develop a rash that started on his bilateral upper extremities. This then spread to the chest, neck, face and hands. He took Zyrtec with no relief in symptoms. Denies coming into contact with any new soaps, detergents, or plants outdoors. He has also not started any new medications. The rash was initially itchy, however he states that it is now very painful and he has been unable to sleep. His hands are the most bothersome at this time. Denies any chest pain or shortness of breath. Denies any fevers, chills, sore throat, cough, dyspnea, chest pain, palpitations, abdominal pain, nausea, vomiting, diarrhea, back pain, or headaches. MD complaint: rash Onset/Timin -: days(s) - Related Data Home Medications Medication Instructions Recorded Confirmed Citalopram Hydrobromide [CeleXA] 40 mg PO HS 07/10/16 03/10/22 Montelukast [Singulair] 10 mg PO DAILY 07/10/16 03/10/22 metFORMIN HCL 1,000 mg PO BID 07/10/16 03/10/22 traMADol HCL [Ultram] 50 mg PO Q8H PRN 07/10/16 03/10/22 Albuterol Sulfate [Ventolin HFA] 2 puff INHALATION RT-QID PRN 02/08/21 03/10/22 Mometasone/Formoterol [Dulera 200 1 puff INHALATION RT-DAILY 03/10/22 03/10/22 Mcg-5 Mcg Inhaler] Omeprazole [PriLOSEC] 40 mg PO DAILY 03/10/22 03/10/22 Previous Rx's Medication Instructions Recorded Aspirin 81 mg PO DAILY tab 03/12/22 Atorvastatin [Lipitor] 40 mg PO HS #30 tab 03/12/22 Clopidogrel [Plavix] 75 mg PO DAILY #30 tab 03/12/22 Insulin Aspart [NovoLOG Flexpen] 8 units SQ AC-TID #0 03/12/22 Insulin Glargine,Hum.rec.anlog 54 unit SQ HS #0 03/12/22 [Lantus Solostar Pen] Metoprolol Succinate (ER) [Toprol 12.5 mg PO DAILY #30 tab 03/12/22 XL] Tamsulosin [Flomax] 0.4 mg PO PC-SUPPER #30 cap 03/12/22 lisinopriL [Zestril] 5 mg PO DAILY #30 tab 03/12/22 Famotidine 20 mg PO DAILY 5 Days #5 tablet 07/04/22 predniSONE 50 mg PO DAILY 5 Days #5 tab 07/04/22 Allergies Allergy/AdvReac Type Severity Reaction Status Date / Time No Known Allergies Allergy Verified 07/04/22 09:45 Review of Systems ROS Statement: Those systems with pertinent positive or pertinent negative responses have been documented in the HPI. ROS Other: All systems not noted in ROS Statement are negative. Past Medical History Past Medical History: Asthma, Coronary Artery Disease (CAD), Cancer, COPD, Diabetes Mellitus, GERD/Reflux, Hyperlipidemia, Hypertension, Osteoarthritis (OA) Additional Past Medical History / Comment(s): hx brain cancer, neuropathy, migraines, History of Any Multi-Drug Resistant Organisms: None Reported Past Surgical History: Coronary Bypass/CABG, Heart Catheterization, Heart Catheterization With Stent, Hernia Repair, Tonsillectomy Additional Past Surgical History / Comment(s): brain tumor removal(titanium plate in skull), quad. bypass 2006(titanium in stermun), priti cataracts Past Anesthesia/Blood Transfusion Reactions: No Reported Reaction Date of Last Stent Placement:: October 2021 Past Psychological History: No Psychological Hx Reported Smoking Status: Former smoker Past Alcohol Use History: None Reported Past Drug Use History: None Reported - Past Family History Mother Family Medical History: Cancer Additional Family Medical History / Comment(s): ovarian General Exam Limitations: no limitations General appearance: alert, in no apparent distress Head exam: Present: atraumatic, normocephalic, normal inspection Respiratory exam: Present: normal lung sounds bilaterally. Absent: respiratory distress, wheezes, rales, rhonchi, stridor Cardiovascular Exam: Present: regular rate, normal rhythm, normal heart sounds. Absent: systolic murmur, diastolic murmur, rubs, gallop, clicks Neurological exam: Present: alert, oriented X3, CN II-XII intact Psychiatric exam: Present: normal affect, normal mood Skin exam: Present: other (Urticarial rash to the bilateral upper extremities, worse on the hands with swelling of all 5 digits. There are also areas of urticaria on the trunk, worse on the abdomen than the back. Facial erythema is also present without any facial swelling.) Course Vital Signs 07/04/22 07/04/22 09:43 11:47 Temperature 97.5 F L 97.8 F Pulse Rate 72 58 L Respiratory 20 18 Rate Blood Pressure 128/52 118/62 O2 Sat by Pulse 97 100 Oximetry Medical Decision Making - Medical Decision Making This is a 66-year-old male who presents to the emergency department for a rash. Was pt. sent in by a medical professional or institution? @ -No Did you speak to anyone other than the patient for history? @ -No Did you review nursing and triage notes? @ -Yes, and I agree, it is accurate with regards to the patient's symptoms. Were old charts reviewed? @ -No Differential Diagnosis? @ -Differential Rash: Roseola, measles, Lyme disease, erythema multiforme, cellulitis, toxic shock syndrome, Saud Neno syndrome, Kawasaki disease, catrachito mountain spotted fever, contact dermatitis, allergic dermatitis, measles, mumps, rubella, varicella, meningococcal disease, drug reaction, coxsackievirus, This is not meant to be an all-inclusive list. EKG interpreted by me (3pts min.)? @ -Not obtained X-rays interpreted by me (1pt min.)? @ -Not obtained CT interpreted by me (1pt min.)? @ -Not obtained U/S interpreted by me (1pt. min.)? @ -Not obtained What testing was considered but not performed? (CT, X-rays, U/S, labs)? Why? @ -None What meds were considered but not given? Why? @ -None Did you discuss the management of the patient with other professionals? @ -No Did you reconcile home meds? @ -No Was smoking cessation discussed for >3mins.? @ -No Was critical care preformed (if so, how long)? @ -No Were there social determinants of health that impacted care today? How? (Homelessness, low income, unemployed, alcoholism, drug addiction, transportation, low edu. Level, literacy, decrease access to med. care, half-way, rehab)? @ -No Was there de-escalation of care discussed even if they declined? (Discuss DNR or withdrawal of care, Hospice)? @ -No What co-morbidities impacted this encounter? (DM, HTN, Smoking, COPD, CAD, Cancer, CVA, Hep., AIDS, mental health diagnosis, sleep apnea, morbid obesity)? @ -Diabetes mellitus Was patient admitted / discharged? @ -Discharged. Patient given an allergy cocktail consisting of Solu-Medrol, Benadryl, and Pepcid along with a liter bolus of IV fluids. He did note significant improvement in symptoms following medication administration. Prescription for an additional 5 days of prednisone and famotidine provided with dosing instructions reviewed. Advised he take an over the counter antihistamine with these as well. Otherwise advised supportive care and following up with his primary care provider for reevaluation of symptoms. Undiagnosed new problem with uncertain prognosis? @ -None Drug Therapy requiring intensive monitoring for toxicity (Heparin, Nitro, Insulin, Cardizem)? @ -None Were any procedures done? @ -None Diagnosis/symptom? @ -Urticaria Acute, or Chronic, or Acute on Chronic? @ -Acute Uncomplicated (without systemic symptoms) or Complicated (systemic symptoms)? @ -Uncomplicated Side effects of treatment? @ -None Exacerbation, Progression, or Severe Exacerbation] @ -Not applicable Poses a threat to life or bodily function? @ -No Return precautions reviewed in depth, the patient is instructed to return to the emergency department with any new, worsening, or concerning symptoms. Patient verbalized understanding. This case was discussed in detail with the attending ED physician, Dr. Roth. Presentation, findings, and treatment plan discussed in detail as well. Disposition Clinical Impression: Urticaria Disposition: HOME SELF-CARE Instructions (If sedation given, give patient instructions): Urticaria (ED) Additional Instructions: Return to the emergency department with any new, worsening, or concerning symptoms. Take the prednisone and Pepcid daily for 5 days, with your first dose starting tomorrow, as you received a dose in the emergency department. Make sure that you are taking an antihistamine as well. Follow up with your primary care provider in 1-2 days. Prescriptions: Famotidine 20 mg PO DAILY 5 Days #5 tablet predniSONE 50 mg PO DAILY 5 Days #5 tab Is patient prescribed a controlled substance at d/c from ED?: No Referrals: Nonstaff,Physician [REFERRING] - 1-2 days
[2022-07-04 11:55] VITALS: BP 118/62; PULSE 58; RESP 18; TEMP 97.8
== END 2022-07-04 11:50 | disposition home or self-care (01) ==
LOC: EC 09:41
DX: L50.9 Urticaria, unspecified (principal); E11.40 Type 2 diabetes mellitus with diabetic neuropathy, unspecified; E11.36 Type 2 diabetes mellitus with diabetic cataract; I10 Essential (primary) hypertension; I25.10 Atherosclerotic heart disease of native coronary artery without angina pectoris; J44.9 Chronic obstructive pulmonary disease, unspecified; K21.9 Gastro-esophageal reflux disease without esophagitis; Z79.84 Long term (current) use of oral hypoglycemic drugs; Z79.899 Other long term (current) drug therapy; Z87.891 Personal history of nicotine dependence
CPT/HCPCS: 99283; 96374; 96375; 96361; J2930

== ENCOUNTER 2022-08-16 20:34 | Emergency (ER) | payer MEDICARE ==
[2022-08-16 20:40] VITALS: RESP 18; TEMP 98.4
--- NOTE | 2022-08-16 21:25 | ED ---
General Adult HPI - General Chief complaint: Recheck/Abnormal Lab/Rx Stated complaint: Overdose Insulin Time Seen by Provider: 08/16/22 20:49 Source: patient, RN notes reviewed Mode of arrival: ambulatory Limitations: no limitations - History of Present Illness Initial comments: 67-year-old male with a past medical history significant for diabetes mellitus 2 resents to the emergency department with a chief complaint of sugar problem. Patient reports that he was getting ready for bed when he accidentally keep himself 40 units of short-acting insulin by mistake. He reports that he quickly came to the emergency department to be evaluated. He denies any vision changes, vision loss, dizziness, lightheaded, palpitations, shortness of breath, abdominal pain, nausea, vomiting - Related Data Home Medications Medication Instructions Recorded Confirmed Citalopram Hydrobromide [CeleXA] 40 mg PO HS 07/10/16 03/10/22 Montelukast [Singulair] 10 mg PO DAILY 07/10/16 03/10/22 metFORMIN HCL 1,000 mg PO BID 07/10/16 03/10/22 traMADol HCL [Ultram] 50 mg PO Q8H PRN 07/10/16 03/10/22 Albuterol Sulfate [Ventolin HFA] 2 puff INHALATION RT-QID PRN 02/08/21 03/10/22 Mometasone/Formoterol [Dulera 200 1 puff INHALATION RT-DAILY 03/10/22 03/10/22 Mcg-5 Mcg Inhaler] Omeprazole [PriLOSEC] 40 mg PO DAILY 03/10/22 03/10/22 Previous Rx's Medication Instructions Recorded Aspirin 81 mg PO DAILY tab 03/12/22 Atorvastatin [Lipitor] 40 mg PO HS #30 tab 03/12/22 Clopidogrel [Plavix] 75 mg PO DAILY #30 tab 03/12/22 Insulin Aspart [NovoLOG Flexpen] 8 units SQ AC-TID #0 03/12/22 Insulin Glargine,Hum.rec.anlog 54 unit SQ HS #0 03/12/22 [Lantus Solostar Pen] Metoprolol Succinate (ER) [Toprol 12.5 mg PO DAILY #30 tab 03/12/22 XL] Tamsulosin [Flomax] 0.4 mg PO PC-SUPPER #30 cap 03/12/22 lisinopriL [Zestril] 5 mg PO DAILY #30 tab 03/12/22 Famotidine 20 mg PO DAILY 5 Days #5 tablet 07/04/22 predniSONE 50 mg PO DAILY 5 Days #5 tab 07/04/22 Allergies Allergy/AdvReac Type Severity Reaction Status Date / Time No Known Allergies Allergy Verified 08/16/22 20:39 Review of Systems ROS Statement: Those systems with pertinent positive or pertinent negative responses have been documented in the HPI. ROS Other: All systems not noted in ROS Statement are negative. Past Medical History Past Medical History: Asthma, Coronary Artery Disease (CAD), Cancer, COPD, Diabetes Mellitus, GERD/Reflux, Hyperlipidemia, Hypertension, Osteoarthritis (OA) Additional Past Medical History / Comment(s): hx brain cancer, neuropathy, migraines, History of Any Multi-Drug Resistant Organisms: None Reported Past Surgical History: Coronary Bypass/CABG, Heart Catheterization, Heart Catheterization With Stent, Hernia Repair, Tonsillectomy Additional Past Surgical History / Comment(s): brain tumor removal(titanium plate in skull), quad. bypass 2006(titanium in stermun), priti cataracts Past Anesthesia/Blood Transfusion Reactions: No Reported Reaction Date of Last Stent Placement:: October 2021 Past Psychological History: No Psychological Hx Reported Smoking Status: Former smoker Past Alcohol Use History: None Reported Past Drug Use History: None Reported - Past Family History Mother Family Medical History: Cancer Additional Family Medical History / Comment(s): ovarian General Exam - General Exam Comments Initial Comments: General: Alert, in no acute distress Head: atraumatic normocephalic. Eyes PERRL, EOMI intact, mucous membranes moist Respiratory: Lungs clear to auscultation bilaterally Cardiovascular: Regular rate and rhythm Abdominal: Soft without guarding or rebound Extremities: Normal inspection with full range of motion and normal capillary refill Neuroogic: alert and oriented 3, CN II-XII intact, able to ambulate with steady gait Skin: warm dry and intact with normal color Limitations: no limitations Course Vital Signs 08/16/22 08/16/22 08/17/22 20:37 21:42 00:25 Temperature 98.4 F Pulse Rate 65 56 L 58 L Respiratory 18 18 18 Rate Blood Pressure 171/92 125/64 123/76 O2 Sat by Pulse 97 97 97 Oximetry - Reevaluation(s) Reevaluation #1: 08/16/22 21:35 Patient reports blood sugar as 91 Reevaluation #2: 08/16/22 22:13 Patient reports blood sugar is 60. Dextrose ordered Medical Decision Making - Medical Decision Making Was pt. sent in by a medical professional or institution (SHAMAR Daniels, [employer], urgent care, hospital, or retirement...) When possible be specific @ -[No] Did you speak to anyone other than the patient for history (EMS, parent, family, police, friend...)? What history was obtained from this source @ -[No] Did you review nursing and triage notes (agree or disagree)? Why? @ -[I reviewed and agree with nursing and triage notes] Were old charts reviewed (outside hosp., previous admission, EMS record, old EKG, old radiological studies, urgent care reports/EKG's, retirement records)? Report findings @ -[No old charts were reviewed] Differential Diagnosis (chest pain, altered mental status, abdominal pain women, abdominal pain men, vaginal bleeding, weakness, fever, dyspnea, syncope, headache, dizziness, GI bleed, back pain, seizure, CVA, palpatations, mental health, musculoskeletal)? @ -[not applicable] EKG interpreted by me (3pts min.). @ -[As above] X-rays interpreted by me (1pt min.). @ -[None done] CT interpreted by me (1pt min.). @ -[None done] U/S interpreted by me (1pt. min.). @ -[None done] What testing was considered but not performed or refused? (CT, X-rays, U/S, labs)? Why? @ -[None] What meds were considered but not given or refused? Why? @ -[None] Did you discuss the management of the patient with other professionals (professionals i.e. SHAMAR Daniels, [employer] W[employer]ER, lab, RT, psych nurse, social worker assistant, teachers assistant, teacher, retail loss prevention officer, case finisher)? Give summary @ -[No] Was smoking cessation discussed for >3mins.? @ -[No] Was critical care preformed (if so, how long)? @ -[No] Were there social determinants of health that impacted care today? How? (Homelessness, low income, unemployed, alcoholism, drug addiction, transportation, low edu. Level, literacy, decrease access to med. care, penitentiary, rehab)? @ -[No] Was there de-escalation of care discussed even if they declined (Discuss DNR or withdrawal of care, Hospice)? DNR status @ -[No] What co-morbidities impacted this encounter? (DM, HTN, Smoking, COPD, CAD, Cancer, CVA, ARF, Chemo, Hep., AIDS, mental health diagnosis, sleep apnea, morbid obesity)? @ -[None] Was patient admitted / discharged? Hospital course, mention meds given and route, prescriptions, significant lab abnormalities, going to OR and other pertinent info. @ -Discharged. This is a 67-year-old male presents to the emergency department with blood sugar problem. Patient had thorough history and physical exam performed on the ED. Physical exam is essentially unremarkable heart rate regular rate and rhythm, lungs clear to auscultation bilaterally, abdomen nontender. Patient's sugars ranging from 90-120. Patient reports on his, tender distal a 62 which 1 amp of dextrose was ordered. Patient's blood sugar was checked every hourly while in the emergency department blood sugar is 261 upon discharge. Patient is agreeable with the plan for discharge home at this time. With strict return precautions and recommend close follow-up with PCP in 1-2 days. Case discussed with ZULMA Cobian who agrees with plan of care Undiagnosed new problem with uncertain prognosis? @ -[No] Drug Therapy requiring intensive monitoring for toxicity (Heparin, Nitro, Insulin, Cardizem)? @ -[No] Were any procedures done? @ -[No] Diagnosis/symptom? @ -Blood Sugar Problem Acute, or Chronic, or Acute on Chronic? @ -Acute Uncomplicated (without systemic symptoms) or Complicated (systemic symptoms)? @ -Uncomplicated Side effects of treatment? @ -[No] Exacerbation, Progression, or Severe Exacerbation? @ -[No] Poses a threat to life or bodily function? How? (Chest pain, USA, MD, pneumonia, PE, COPD, DKA, ARF, appy, cholecystitis, CVA, Diverticulitis, Homicidal, Suicidal, threat to staff... and all critical care pts) @ -Low likelihood - Lab Data Lab Results 08/16/22 08/16/22 Range/Units 21:32 22:35 POC Glucose (mg/dL) 117 H 86 (70-110) mg/dL POC Glu Marine Meteorologist ID Leatha Her Brooke Disposition Clinical Impression: Low blood sugar Disposition: HOME SELF-CARE Condition: Stable Additional Instructions: Please return to the nearest emergency department for worsening or persistent symptoms Is patient prescribed a controlled substance at d/c from ED?: No Referrals: Hima Kinsey DO [Primary Care Provider] - 1-2 days Time of Disposition: 23:32
[2022-08-16 21:44] LABS: Glucose,Whole Blood 117 mg/dL (70-110)
[2022-08-16] MEDS ORDERED: DEXTROSE 50% SYRINGE 50 ML IVP STA (22:13)
[2022-08-17 00:26] VITALS: BP 123/76; PULSE 58
[2022-08-17 00:47] LABS: Glucose,Whole Blood 86 mg/dL (70-110)
== END 2022-08-17 00:26 | disposition home or self-care (01) ==
LOC: EC 20:34
DX: I95.9 Hypotension, unspecified (principal); I10 Essential (primary) hypertension; E78.5 Hyperlipidemia, unspecified; I25.10 Atherosclerotic heart disease of native coronary artery without angina pectoris; J44.9 Chronic obstructive pulmonary disease, unspecified; M19.90 Unspecified osteoarthritis, unspecified site; K21.9 Gastro-esophageal reflux disease without esophagitis; Z79.899 Other long term (current) drug therapy; Z79.84 Long term (current) use of oral hypoglycemic drugs; Z87.891 Personal history of nicotine dependence
CPT/HCPCS: 36415; 96374; 99284

== ENCOUNTER 2022-09-02 09:06 | Emergency (ER) | payer MEDICARE ==
[2022-09-02] MEDS ORDERED: DEXTROSE 5%-0.9% NACL 1,000 ML IV STA (09:19)
[2022-09-02 09:35] LABS: Basophils % (A) 0 %; Eosinophils # (A) 0.2 k/uL (0-0.7); Eosinophils % (A) 3 %; HGB 14.5 gm/dL (13.0-17.5); Lymphocytes # (A) 1.5 k/uL (1.0-4.8); Lymphocytes % (A) 22 %; MCHC 34.6 g/dL (31.0-37.0); MCV 92.5 fL (80.0-100.0); Mean Platelet Volume 7.9; Monocytes # (A) 0.4 k/uL (0-1.0); Monocytes % (A) 5 %; Neutrophils # (A) 4.8 k/uL (1.3-7.7); Neutrophils % (A) 69 %; Platelet Count 220 k/uL (150-450); RBC 4.53 m/uL (4.30-5.90); RDW 13.2 % (11.5-15.5)
[2022-09-02] MEDS ORDERED: DEXTROSE 50% SYRINGE 50 ML IVP STA (09:48)
[2022-09-02 09:51] LABS: ALT 24 U/L (4-49); AST 35 U/L (17-59); African American GFR (CKD) 88 (>60 ml/min/1.73 sqM); Albumin 4.1 g/dL (3.5-5.0); Alkaline Phosphatase 89 U/L (38-126); Anion Gap 11 mmol/L; Blood Urea Nitrogen 15 mg/dL (9-20); Calcium 9.2 mg/dL (8.4-10.2); Carbon Dioxide 23 mmol/L (22-30); Chloride 105 mmol/L (98-107); Glucose 158 mg/dL (74-99); Non-African American GFR(CKD) 76 (>60 ml/min/1.73 sqM); Potassium 3.8 mmol/L (3.5-5.1); Sodium 139 mmol/L (137-145); Total Bilirubin 0.6 mg/dL (0.2-1.3); Total Protein 6.7 g/dL (6.3-8.2)
--- NOTE | 2022-09-02 10:32 | ED ---
General Adult HPI - General Chief complaint: Recheck/Abnormal Lab/Rx Stated complaint: Took too much Insulin Time Seen by Provider: 09/02/22 09:15 Source: patient, RN notes reviewed Mode of arrival: ambulatory Limitations: no limitations - History of Present Illness Initial comments: 67-year-old male presents emergency Department chief complaint of accidentally taking the wrong insulin. Patient states no takes 40 units of Lantus in the morning he states that he grabbed his wrong insulin pen and took 40 units of NovoLog. Patient states she usually only takes 8-10 units during mealtime. Patient states his blood sugar is rapidly dropping. He states he drank 2 cups of coffee with multiple packs of sugar and states that he ate several spoonfuls of honey. Patient denies any current symptoms denies any other associated symptoms. - Related Data Home Medications Medication Instructions Recorded Confirmed Citalopram Hydrobromide [CeleXA] 40 mg PO HS 07/10/16 09/02/22 Montelukast [Singulair] 10 mg PO DAILY 07/10/16 09/02/22 metFORMIN HCL 1,000 mg PO BID 07/10/16 09/02/22 traMADol HCL [Ultram] 50 mg PO Q8H PRN 07/10/16 09/02/22 Albuterol Sulfate [Ventolin HFA] 2 puff INHALATION RT-QID PRN 02/08/21 09/02/22 Omeprazole [PriLOSEC] 40 mg PO HS 03/10/22 09/02/22 Cetirizine HCl [Zyrtec] 10 mg PO HS 09/02/22 09/02/22 Cholecalciferol [Vitamin D3 (25 50 mcg PO HS 09/02/22 09/02/22 Mcg = 1000 Iu)] Circulation & Vein Support 2 cap PO BID 09/02/22 09/02/22 Focus Factor 1 tab PO BID 09/02/22 09/02/22 Insulin Aspart [NovoLOG Flexpen] 10 - 15 units SQ AC-TID 09/02/22 09/02/22 Insulin Glargine,Hum.rec.anlog 40 - 64 unit SQ DAILY 09/02/22 09/02/22 [Lantus Solostar Pen] Metoprolol Succinate (ER) [Toprol 25 mg PO HS 09/02/22 09/02/22 Xl] Multivit-Min/FA/Lycopen/Lutein 1 tab PO DAILY 09/02/22 09/02/22 [Centrum Silver Tablet] Thiamine [Vitamin B-1] 100 mg PO DAILY 09/02/22 09/02/22 Previous Rx's Medication Instructions Recorded Aspirin 81 mg PO DAILY tab 03/12/22 Atorvastatin [Lipitor] 40 mg PO HS #30 tab 03/12/22 Clopidogrel [Plavix] 75 mg PO DAILY #30 tab 03/12/22 Tamsulosin [Flomax] 0.4 mg PO PC-SUPPER #30 cap 03/12/22 lisinopriL [Zestril] 5 mg PO DAILY #30 tab 03/12/22 Allergies Allergy/AdvReac Type Severity Reaction Status Date / Time No Known Allergies Allergy Verified 09/02/22 11:38 Review of Systems ROS Statement: Those systems with pertinent positive or pertinent negative responses have been documented in the HPI. ROS Other: All systems not noted in ROS Statement are negative. Past Medical History Past Medical History: Asthma, Coronary Artery Disease (CAD), Cancer, COPD, Diabetes Mellitus, GERD/Reflux, Hyperlipidemia, Hypertension, Osteoarthritis (OA) Additional Past Medical History / Comment(s): hx brain cancer, neuropathy, elizabeth rachel, History of Any Multi-Drug Resistant Organisms: None Reported Past Surgical History: Coronary Bypass/CABG, Heart Catheterization, Heart Catheterization With Stent, Hernia Repair, Tonsillectomy Additional Past Surgical History / Comment(s): brain tumor removal(titanium plate in skull), quad. bypass 2006(titanium in [place]erm[place]), priti cataracts Past Anesthesia/Blood Transfusion Reactions: No Reported Reaction Date of Last Stent Placement:: October 2021 Past Psychological History: No Psychological Hx Reported Smoking Status: Former smoker Past Alcohol Use History: None Reported Past Drug Use History: None Reported - Past Family History Mother Family Medical History: Cancer Additional Family Medical History / Comment(s): ovarian General Exam Limitations: no limitations General appearance: alert, in no apparent distress Head exam: Present: atraumatic, normocephalic, normal inspection ENT exam: Present: normal exam, mucous membranes moist Neck exam: Present: normal inspection, full ROM. Absent: tenderness, meningismus, lymphadenopathy Respiratory exam: Present: normal lung sounds bilaterally. Absent: respiratory distress, wheezes, rales, rhonchi, stridor Cardiovascular Exam: Present: regular rate, normal rhythm, normal heart sounds. Absent: systolic murmur, diastolic murmur, rubs, gallop, clicks Course Vital Signs 09/02/22 09/02/22 09/02/22 09:11 11:42 13:13 Temperature 98.2 F 97.8 F 97.8 F Pulse Rate 68 59 L 57 L Respiratory 16 18 16 Rate Blood Pressure 171/70 146/80 120/48 O2 Sat by Pulse 98 96 96 Oximetry Medical Decision Making - Medical Decision Making Was pt. sent in by a medical professional or institution (, SHAMAR, [employer] TRUCK [employer]IVER, urgent care, hospital, or shelter...) When possible be specific @ -No Did you speak to anyone other than the patient for history (EMS, parent, family, police, friend...)? What history was obtained from this source @ -No Did you review nursing and triage notes (agree or disagree)? Why? @ -I reviewed and agree with nursing and triage notes Were old charts reviewed (outside hosp., previous admission, EMS record, old EKG, old radiological studies, urgent care reports/EKG's, shelter records)? Report findings @ -No old charts were reviewed Differential Diagnosis (chest pain, altered mental status, abdominal pain women, abdominal pain men, vaginal bleeding, weakness, fever, dyspnea, syncope, headache, dizziness, GI bleed, back pain, seizure, CVA, palpatations, mental health, musculoskeletal)? @ -Insulin overdose, hypoglycemia EKG interpreted by me (3pts min.). @ -None X-rays interpreted by me (1pt min.). @ -None done CT interpreted by me (1pt min.). @ -None done U/S interpreted by me (1pt. min.). @ -None done What testing was considered but not performed or refused? (CT, X-rays, U/S, labs)? Why? @ -None What meds were considered but not given or refused? Why? @ -None Did you discuss the management of the patient with other professionals (professionals i.e. SHAMAR Daniels, TOW TRUCK DRIVER, lab, RT, psych nurse, social service manager, manager gaming, teacher, juvenile justice officer, bottle caser)? Give summary @ -No Was smoking cessation discussed for >3mins.? @ -No Was critical care preformed (if so, how long)? @ -No Were there social determinants of health that impacted care today? How? (Homeles sness, low income, unemployed, alcoholism, drug addiction, transportation, low edu. Level, literacy, decrease access to med. care, long term, rehab)? @ -No Was there de-escalation of care discussed even if they declined (Discuss DNR or withdrawal of care, Hospice)? DNR status @ -No What co-morbidities impacted this encounter? (DM, HTN, Smoking, COPD, CAD, Cancer, CVA, ARF, Chemo, Hep., AIDS, mental health diagnosis, sleep apnea, morbid obesity)? @ -None Was patient admitted / discharged? Hospital course, mention meds given and route, prescriptions, significant lab abnormalities, going to OR and other pertinent info. @ -Discharge patient was evaluated and observed for 5 hours with stabilization of his glucose. Patient was requests discharge and feels comfortable with close monitoring. Patient has CBG monitor on. Undiagnosed new problem with uncertain prognosis? @ -No Drug Therapy requiring intensive monitoring for toxicity (Heparin, Nitro, Insulin, Cardizem)? @ -No Were any procedures done? @ -No Diagnosis/symptom? @ -Insulin Overdose, hyperglycemia Acute, or Chronic, or Acute on Chronic? @ -Acute Uncomplicated (without systemic symptoms) or Complicated (systemic symptoms)? @ -Uncomplicated Side effects of treatment? @ -No Exacerbation, Progression, or Severe Exacerbation? @ -No Poses a threat to life or bodily function? How? (Chest pain, USA, ND, pneumonia, PE, COPD, DKA, ARF, appy, cholecystitis, CVA, Diverticulitis, Homicidal, Suicidal, threat to staff... and all critical care pts) @ -No - Lab Data Result diagrams: 09/02/22 09:27 09/02/22 09:27 Lab Results 09/02/22 09/02/22 Range/Units 09:27 09:27 WBC 7.0 (3.8-10.6) k/uL RBC 4.53 (4.30-5.90) m/uL Hgb 14.5 (13.0-17.5) gm/dL Hct 42.0 (39.0-53.0) % MCV 92.5 (80.0-100.0) fL MCH 32.0 (25.0-35.0) pg MCHC 34.6 (31.0-37.0) g/dL RDW 13.2 (11.5-15.5) % Plt Count 220 (150-450) k/uL MPV 7.9 Neutrophils % 69 % Lymphocytes % 22 % Monocytes % 5 % Eosinophils % 3 % Basophils % 0 % Neutrophils # 4.8 (1.3-7.7) k/uL Lymphocytes # 1.5 (1.0-4.8) k/uL Monocytes # 0.4 (0-1.0) k/uL Eosinophils # 0.2 (0-0.7) k/uL Basophils # 0.0 (0-0.2) k/uL Sodium 139 (137-145) mmol/L Potassium 3.8 (3.5-5.1) mmol/L Chloride 105 (98-107) mmol/L Carbon Dioxide 23 (22-30) mmol/L Anion Gap 11 mmol/L BUN 15 (9-20) mg/dL Creatinine 1.03 (0.66-1.25) mg/dL Est GFR (CKD-EPI)AfAm 88 (>60 ml/min/1.73 sqM) Est GFR (CKD-EPI)NonAf 76 (>60 ml/min/1.73 sqM) Glucose 158 H (74-99) mg/dL Calcium 9.2 (8.4-10.2) mg/dL Total Bilirubin 0.6 (0.2-1.3) mg/dL AST 35 (17-59) U/L ALT 24 (4-49) U/L Alkaline Phosphatase 89 (38-126) U/L Total Protein 6.7 (6.3-8.2) g/dL Albumin 4.1 (3.5-5.0) g/dL Disposition Clinical Impression: Hypoglycemia, Accidental overdose of insulin Disposition: HOME SELF-CARE Condition: Stable Instructions (If sedation given, give patient instructions): Hypoglycemia in a Person with Diabetes (ED) Additional Instructions: Please return to the Emergency Department if symptoms worsen or any other concerns. Is patient prescribed a controlled substance at d/c from ED?: No Referrals: Hima Kinsey DO [Primary Care Provider] - 1-2 days Time of Disposition: 14:11
[2022-09-02 14:58] VITALS: BP 138/73; PULSE 58; RESP 18; TEMP 98.3
== END 2022-09-02 14:59 | disposition home or self-care (01) ==
LOC: EC 09:06
DX: T38.3X1A Poisoning by insulin and oral hypoglycemic [antidiabetic] drugs, accidental (unintentional), initial encounter (principal); E11.649 Type 2 diabetes mellitus with hypoglycemia without coma; I25.10 Atherosclerotic heart disease of native coronary artery without angina pectoris; J44.9 Chronic obstructive pulmonary disease, unspecified; I10 Essential (primary) hypertension; M19.90 Unspecified osteoarthritis, unspecified site; Z87.891 Personal history of nicotine dependence; Z79.1 Long term (current) use of non-steroidal anti-inflammatories (NSAID); Z79.4 Long term (current) use of insulin; Z79.899 Other long term (current) drug therapy
CPT/HCPCS: 36415; 80053; 85025; 96360; 96361; 99283

== ENCOUNTER → 2022-12-14 | Outpatient (CLI) | payer MEDICARE ==
--- NOTE | 2022-12-15 14:57 | NM ---
EXAMINATION TYPE: NM thyroid image w uptake DATE OF EXAM: 12/15/2022 COMPARISON: NONE CLINICAL INDICATION: Male, 67 years old with history of E05.90 THYROTOXICOSIS; TECHNIQUE: Thyroid iodine uptake is calculated and images performed after the oral administration of 303 uCi 1-123 Capsule. FINDINGS: There is normal distribution of activity throughout the gland. The 4 hour iodine uptake is calculated at 4.4% (normal range 8-14%). The 24-hour iodine uptake is calculated at 13.1 % (normal r parmjit 15-35%). IMPRESSION: Thyroid uptake compatible with hypothyroidism. Correlate for Layla's versus subacute thyroiditis versus high iodine diet.
== END | disposition home or self-care (01) ==
LOC: RADNMMAIN 09:12
PROVIDERS: ATTEND Internal Medicine Endocrinology, Diabetes & Metabolism
DX: E05.90 Thyrotoxicosis, unspecified without thyrotoxic crisis or storm (principal)
CPT/HCPCS: 78014; A9516

== ENCOUNTER 2023-03-14 07:06 | Day surgery (SDC) | payer MEDICARE ==
[~2023-03-14 07:06] MED LIST changes: -ASPIRIN 325 MG TAB PO ONE; -ATORVASTATIN 80 MG TAB PO ONE; +HEPARIN SODIUM,PORCINE (1 ML) 2,500 UNIT in SODIUM CHLORIDE 0.9% 250 ML IRRIGATION PRN; +HEPARIN SODIUM,PORCINE 10,000 UNIT in SODIUM CHLORIDE 0.9% 1,000 ML IRRIGATION PRN; -SODIUM CHLORIDE 0.9% 1,000 ML in EMPTY BAG 1 BAG IV SCH
[2023-03-14] MEDS: SODIUM CHLORIDE 0.9% 1,000 ML IV ONE (07:47)
[2023-03-14] MEDS: ASPIRIN 325 MG TAB PO STA (07:59)
[2023-03-14] MEDS: ASPIRIN 81 MG ONE (08:00)
[2023-03-14] MEDS: CLOPIDOGREL 75 MG TAB ONE (08:00)
[2023-03-14] MEDS: SODIUM CHLORIDE 0.9% 1,000 ML in EMPTY BAG 1 BAG IV SCH (08:00)
[2023-03-14 08:03] LABS: Glucose,Whole Blood 195 mg/dL (70-110)
[2023-03-14 08:04] VITALS: RESP 16; TEMP 98.2
[2023-03-14 08:14] LABS: Basophils # (A) 0.1 k/uL (0-0.2); Basophils % (A) 1 %; Eosinophils # (A) 0.2 k/uL (0-0.7); Eosinophils % (A) 2 %; HCT 48.6 % (39.0-53.0); HGB 16.1 gm/dL (13.0-17.5); Lymphocytes # (A) 2.1 k/uL (1.0-4.8); Lymphocytes % (A) 23 %; MCH 31.2 pg (25.0-35.0); MCHC 33.1 g/dL (31.0-37.0); MCV 94.1 fL (80.0-100.0); Mean Platelet Volume 7.6; Monocytes # (A) 0.5 k/uL (0-1.0); Monocytes % (A) 6 %; Neutrophils # (A) 6.1 k/uL (1.3-7.7); Neutrophils % (A) 67 %; Platelet Count 241 k/uL (150-450); RBC 5.16 m/uL (4.30-5.90); RDW 11.9 % (11.5-15.5); WBC 9.2 k/uL (3.8-10.6)
[2023-03-14 08:15] LABS: African American GFR (CKD) 63 (>60 ml/min/1.73 sqM); Anion Gap 6 mmol/L; Blood Urea Nitrogen 23 mg/dL (9-20); Calcium 9.3 mg/dL (8.4-10.2); Carbon Dioxide 25 mmol/L (22-30); Chloride 106 mmol/L (98-107); Glucose 178 mg/dL (74-99); Non-African American GFR(CKD) 55 (>60 ml/min/1.73 sqM); Potassium 4.1 mmol/L (3.5-5.1); Sodium 137 mmol/L (137-145)
[2023-03-14] MEDS ORDERED: fentaNYL (PF) 50 MCG/ML 2 ML AMP ONE (08:58)
[2023-03-14] MEDS: fentaNYL (PF) 50 MCG/1 ML VIAL IVP ONE (09:08)
[2023-03-14] MEDS: LIDOCAINE 1% INJ 10MG/ML (20 ML MDV) SQ ONE (09:20)
[2023-03-14] MEDS ORDERED: HEPARIN SODIUM 1,000 UN/ML (10ML VL) ONE (09:25)
[2023-03-14] MEDS: HEPARIN SODIUM 1,000 UN/ML (10ML VL) IV ONE (09:26)
[2023-03-14] MEDS: VERAPAMIL SYRINGE (5 MG/10 ML) INTRAARTER ONE (09:26)
[2023-03-14] MEDS: IOPAMIDOL-370 100ML BTL INJ ONE ×2 (09:39→09:46)
[2023-03-14] MEDS ORDERED: RX INFO: IV CONTRAST WAS GIVEN 1 EACH MISC MISCELLANE PRN (10:03)
--- NOTE | 2023-03-14 10:11 | P.CARDCATH ---
Date of Procedure: 03/14/23 Description of Procedure: Cardiac Catheterization: The patient is a 67-year-old male with a known history of CAD, post CABG in 2006, history of PCI in March 2022 who presented with symptoms of progressive dyspnea, fatigue and had an abnormal MPI. Recommendations were made regarding cardiac catheterization, the risks and the complications were discussed with the patient who is in full understanding and agreement. Procedure Description: Patient was brought to laborer brush clearing in fasting semi-sedated state after receiving Fentanyl and Benadryl achieiving moderate conscious sedated state. Using Xylocaine Anesthesia and modified Seldinger technique, a 6-Polish sheath was introduced in the left radial artery . Subsequently, selective coronary angiography was performed using a 5-Polish 4 bend Angelina catheter. The right Angelina was used to cannulate the RIOJAS to the LAD, a 5 Polish multipurpose B2 was used to cannulate the SVG to the RCA and to the OM. Multiple views of the coronary artery including hemiaxial views were obtained. The 5 Polish pigtail catheter was used to cross the aortic valve and LVEDP was calculated. Following that, catheter and sheath were removed. Hemostasis was obtained with deployment of vascular band . There was no immediate complication. Patient was returned to room in stable condition. Of note, the patient received a total of 5000 units of intravenous heparin as well as intra-arterial verapamil. Findings: Left main: This is a large size vessel, bifurcating into LAD and left circumflex, left main has no evidence of high-grade stenosis. LAD: This vessel is totally occluded proximally with no significant antegrade flow. Left circumflex: This is a nondominant vessel giving rise to 3 obtuse marginal branch. The left circumflex in the proximal and mid segment has long segment with diffuse disease with a area of stenosis up to 99%. Heavily calcified. RCA: This is a dominant vessel, stented, chronically occluded in the midsegment with no antegrade flow RIOJAS to the LAD the distal anastomotic site is patent with brisk flow into the LAD and collaterals to the right PDA SVG to the PLV: The proximal and distal anastomotic site are patent the stented segment is patent the flow in the PLV is brisk there is diffuse intimal disease in the body of the graft with a area of stenosis up to 20%. The PLV is diffusely diseased SVG to the OM 1 the proximal and distal anastomotic site are patent the flow into the OM is brisk there is intimal disease in the OM. The vessel could represent a ramus intermedius. Left Ventriculogram: Not performed Hemodynamics: There was no gradient across the aortic valve, LVEDP was 5-8 mmHg Conclusion: 1. Chronically occluded LAD and RCA 2. Severe disease in the long segment of the proximal left circumflex with no significant progression 3. Patent RIOJAS to the LAD 4. Patent SVG to the OM1 5. Patent SVG to the PLV Recommendations: At this time I will continue medical therapy with aggressive coronary risks modification. If he continues to be symptomatic then I would recommend to evaluate him for PCI of the left circumflex.. The findings and the recommendations were discussed with the patient and the family and they were in full understanding and agreement. Duration of sedation is 29 minutes.
[2023-03-14] MEDS ORDERED: SODIUM CHLORIDE 0.9% 1,000 ML IV SCH (10:15)
[2023-03-14 15:32] VITALS: BP 127/66; PULSE 64
[2023-03-14] MEDS ORDERED: METOPROLOL SUCCINATE (ER) 25 MG TAB.ER.24H PO SCH (21:00)
[2023-03-14] MEDS ORDERED: RANOLAZINE 500 MG TAB.ER.12H PO SCH (21:00)
[2023-03-14] MEDS ORDERED: ATORVASTATIN 40 MG TAB PO SCH (21:00)
[2023-03-15] MEDS ORDERED: CLOPIDOGREL 75 MG TAB PO SCH (09:00)
[2023-03-15] MEDS ORDERED: lisinopriL 5 MG TAB PO SCH (09:00)
[2023-03-15] MEDS ORDERED: ASPIRIN 81 MG PO SCH (09:00)
== END 2023-03-14 13:28 | disposition home or self-care (01) ==
LOC: CATHCVL 07:06
PROVIDERS: ATTEND Internal Medicine Interventional Cardiology
DX: I25.10 Atherosclerotic heart disease of native coronary artery without angina pectoris (principal); I73.9 Peripheral vascular disease, unspecified; E11.9 Type 2 diabetes mellitus without complications; E78.5 Hyperlipidemia, unspecified; Z79.82 Long term (current) use of aspirin; Z79.899 Other long term (current) drug therapy; Z95.1 Presence of aortocoronary bypass graft; Z87.891 Personal history of nicotine dependence
CPT/HCPCS: 93459; 80048; 85025; C1769; C1894; J2001; J1644; Q9967; J3010